=== PATIENT | female | born 1985 | race Caucasian/White ===

== ENCOUNTER 2016-06-27 10:35 | Outpatient (CLI) | payer MEDICAID | END 2016-06-27 10:36 | disposition home or self-care (01) | DX: K52.9 Noninfective gastroenteritis and colitis, unspecified (principal) ==

== ENCOUNTER 2016-08-22 10:22 | Outpatient (CLI) | payer MEDICAID | END 2016-08-22 10:23 | disposition home or self-care (01) | DX: R94.5 Abnormal results of liver function studies (principal) ==

== ENCOUNTER 2017-03-30 09:52 | Emergency (ER) | payer MEDICAID ==
[2017-03-30] MEDS ORDERED: KETOROLAC 60 MG/2 ML VIAL IM STA (10:07)
[2017-03-30] MEDS ORDERED: oxyCODONE 5 MG TABLET PO STA (10:07)
--- NOTE | 2017-03-30 10:10 | ED Physician Documentation ---
History of Present Illness - Stated complaint Stated Complaint: R KNEE INJURY - Additonal information Additional information: hx from pt 32f deneis preg playing basketball came down from a jump and collided with another player her knee gave out/shifted laterally immediate severe pain and swelling Review of Systems : denies: Now EGA Musculoskeletal: reports: Joint pain PD PAST MEDICAL HISTORY - Past Medical History Cardiovascular: None Respiratory: None Endocrine/Autoimmune: Other GI: None : None HEENT: None Psych: Anxiety Musculoskeletal: None Derm: None - Past Surgical History Past Surgical History: Yes 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 - Present Medications Home Medications: Ambulatory Orders Medication Instructions Recorded Confirmed Pnv Cmb#21/Iron/Folic Acid 1 tab PO DAILY 09/25/13 04/15/14 [ Complete Caplet] Ibuprofen [Motrin] 400 mg PO Q6H PRN #30 tablet 03/30/17 Oxycodone HCl/Acetaminophen 1 each PO Q6HR PRN #15 tablet 03/30/17 [Percocet 5-325 mg Tablet] - Allergies Allergies/Adverse Reactions: Allergies Allergy/AdvReac Type Severity Reaction Status Date / Time No Known Drug Allergies Allergy Verified 04/15/14 14:32 - Social History Does the pt smoke?: No Smoking Status: Never smoker Does the pt drink ETOH?: No PD ED PE NORMAL - Vitals Vital signs reviewed: Yes - Cardiac Cardiac: RRR - Respiratory Respiratory: No respiratory distress, Clear bilaterally - Extremities Extremities: Other (R knee marked effusion, TTP bulmaro jt lines, unable to assess ACL MCL LCL laxity or test for meniscal catch given severe pain and edema, patella midline and quad and patellar tendons feel intact, MSV intact to foot) Results - Vitals Vitals: Vital Signs - 24 hr 03/30/17 10:02 Temperature 36.0 C L Heart Rate 68 Respiratory 20 Rate Blood Pressure 111/68 O2 Saturation 100 Oxygen O2 Source Room air - Rads (name of study) knee Radiology: See rad report (effusion, no bony abnormality, no dislocation or sublux) PD MEDICAL DECISION MAKING - ED course ED course: based on mnechanism by hx and immediate large swelling suspect ACL rupture cannot assess laxity 2/2 pain and swelling will JESS cructehs control pain and refer to ortho for fup and further eval such as MRI MSV intact Departure - Departure Disposition: 01 Home, Self Care Clinical Impression: Knee internal derangement Qualifiers: Laterality: right Qualified Code(s): M23.91 - Unspecified internal derangement of right knee Condition: Good Instructions: ED Knee Injury Cruciate Ligament Follow-Up: [facility] [Provider Group] Prescriptions: Oxycodone HCl/Acetaminophen [Percocet 5-325 mg Tablet] 1 each PO Q6HR PRN #15 tablet PRN Reason: Severe Pain Ibuprofen [Motrin] 400 mg PO Q6H PRN #30 tablet PRN Reason: Pain Comments: The xray looks fine - no dislocation and no fractures Based on the injury your describe and the imediate large swellign, i suspect you have torn your ACL At this point the knee is so swollen and painful it is difficult to examine each ligament for laxity I recommend that you use the JESS wrap, ice and elevation to keep the swelling down, motrin and percocet for the pain, no weight bearing - crutches only Then follow up with orthopedics next week for a recheck and perhaps a MRI If you are worse at any point over the weekend - increasing pain, discoloration or numbness come back tot the ER for a recheck Forms: Activity restrictions
[2017-03-30] MEDS ORDERED: oxyCODONE 5 MG TABLET ONE (10:16)
[2017-03-30] MEDS ORDERED: KETOROLAC 60 MG/2 ML VIAL ONE (10:16)
--- NOTE | 2017-03-30 11:22 | XRAY Preliminary Report ---
Exam: XR KNEE 4 VIEW RT IMPRESSION: 1. No acute osseous abnormality. 2. There may be a small knee joint effusion. [facility] SITE ID: [id number]
--- NOTE | 2017-03-30 11:25 | XRAY Report ---
EXAM: RIGHT KNEE RADIOGRAPHY EXAM DATE: 03/30/2017 10:39 AM. CLINICAL HISTORY: Bball, knee shifted/gave out, immediate effusion. COMPARISON: None. TECHNIQUE: 4 views. FINDINGS: Bones: Normal. No fractures or bone lesions. Joints: No subluxation. There may be a small knee joint effusion. Soft Tissues: Normal. No soft tissue swelling. IMPRESSION: 1. No acute osseous abnormality. 2. There may be a small knee joint effusion. [facility] Referring Provider Line: [phone] SITE ID: [id number]
[2017-03-30 11:43] VITALS: BP 106/70
== END 2017-03-30 11:57 | disposition home or self-care (01) ==
LOC: SUPCPDRO 09:52 → ED 09:52
DX: M23.91 Unspecified internal derangement of right knee (principal); X50.0XXA Overexertion from strenuous movement or load, initial encounter; Y93.67 Activity, basketball; Y92.310 Basketball court as the place of occurrence of the external cause
CPT/HCPCS: 73564; 96372; 99283; A9270

== ENCOUNTER 2017-04-08 10:03 | Outpatient (CLI) | payer MEDICAID ==
--- NOTE | 2017-04-08 17:04 | MRI Report ---
EXAM: RIGHT KNEE MRI WITHOUT CONTRAST EXAM DATE: 04/08/2017 11:07 a.m. CLINICAL HISTORY: Basketball injury 10 days ago. Right knee pain, difficulty weight-bearing. COMPARISON: Radiographs 03/30/2017. TECHNIQUE: Multiplanar, multisequence T1-weighted and fluid-sensitive sequences of the knee without c ontrast. Other: None. FINDINGS: Cruciate ligaments: The posterior cruciate ligament appears intact. The anterior cruciate ligament ap pears completely torn. Medial meniscus: Intact. No tear is identified. Lateral meniscus: Steep horizontal tear at the posterior horn extending to the femoral articular surf phyllis. Slightly more vertical orientation medially. Collateral ligaments: Edema associated with the medial collateral ligament. Possible disruption of so me of the upper anterior fibers. The fibular collateral ligament is intact. Bones and articular surfaces: Marrow edema consistent with bone contusions at the posterior aspect of the medial and lateral tibial plateau. Impaction fracture at the periphery of the mid lateral femora l condyle. Tiny Segond avulsion fracture at the lateral margin of the tibial plateau. Mild cartilage fissuring at the medial facet of the patella. Extensor mechanism: The patellar tendon and quadriceps insertion appear intact. IMPRESSION: 1. Tear of the anterior cruciate ligament with corresponding bone contusions. 2. Small impaction fracture at the periphery of the mid lateral femoral condyle. 3. Small Segond avulsion fracture at the lateral margin of the tibial plateau. 4. Horizontal and vertical tear at the posterior horn lateral meniscus. 5. Severe grade 1 versus mild grade 2 sprain of the medial collateral ligament. [facility] MUSCULOSKELETAL RADIOLOGY SECTION Referring Provider Line: [phone] SITE ID: [id number]
== END 2017-04-08 10:04 | disposition home or self-care (01) ==
LOC: DI 10:03
PROVIDERS: ATTEND Orthopaedic Surgery
DX: S83.511A Sprain of anterior cruciate ligament of right knee, initial encounter (principal); S80.11XA Contusion of right lower leg, initial encounter; S72.421A Displaced fracture of lateral condyle of right femur, initial encounter for closed fracture; S82.141A Displaced bicondylar fracture of right tibia, initial encounter for closed fracture; S83.281A Other tear of lateral meniscus, current injury, right knee, initial encounter; S83.411A Sprain of medial collateral ligament of right knee, initial encounter

== ENCOUNTER 2017-04-10 12:00 | Outpatient (CLI) | payer MEDICAID | END 2017-04-10 12:01 | disposition home or self-care (01) | LOC: LAB.R 12:00 | PROVIDERS: ATTEND Obstetrics & Gynecology | DX: L03.90 Cellulitis, unspecified (principal) | CPT/HCPCS: 87070; 87205 ==

== ENCOUNTER 2017-08-29 09:13 | Day surgery (SDC) | payer MEDICAID ==
[~2017-08-29 09:13] MED LIST: ceFAZolin 2 GM/50 ML 2 GM/50 ML BAG IV ONE
[2017-08-29 09:38] LABS: HCG UR QUAL NEGATIVE
[2017-08-29] MEDS ORDERED: LACTATED RINGERS 1,000 ML IV ONE ×3 (09:50→16:16)
[2017-08-29] MEDS ORDERED: SCOPOLAMINE PATCH TOP ONE (10:12)
[2017-08-29] MEDS ORDERED: ROPIVACAINE 0.5% PF 20 ML AMPULE ONE (10:15)
[2017-08-29] MEDS ORDERED: MIDAZOLAM 2 MG/2 ML VIAL ONE (10:15)
[2017-08-29] MEDS ORDERED: fentaNYL 100 MCG/2 ML VIAL ONE ×2 (10:15→13:53)
[2017-08-29] MEDS ORDERED: fentaNYL 250 MCG/5 ML VIAL IVP ONE (11:00)
[2017-08-29] MEDS ORDERED: ACETAMINOPHEN 1,000 MG/100 ML 100 ML IV ONE (11:00)
[2017-08-29] MEDS ORDERED: NEOSTIGMINE 1 MG/1 ML 10 ML MDV IVP ONE (11:00)
[2017-08-29] MEDS ORDERED: PROPOFOL 200 MG/20 ML VIAL IVP ONE (11:00)
[2017-08-29] MEDS ORDERED: ROCURONIUM 50 MG/5 ML VIAL IVP ONE (11:00)
[2017-08-29] MEDS ORDERED: ONDANSETRON 4 MG/2 ML VIAL IVP ONE (11:00)
[2017-08-29] MEDS ORDERED: GLYCOPYRROLATE 1 MG/5 ML VIAL IVP ONE (11:00)
[2017-08-29] MEDS ORDERED: LIDOCAINE-MPF 2% 5 ML VIAL IM ONE (11:00)
[2017-08-29] MEDS ORDERED: BUPIVACAINE 0.25%-EPI 1:200000 PF 30 ML VIAL ONE ×2 (11:24→12:52)
[2017-08-29] MEDS ORDERED: BUPIVACAINE 0.25%-EPI 1:200000 PF 10 ML VIAL SUBQ ONE (11:43)
[2017-08-29] MEDS ORDERED: KETOROLAC 30 MG/ML VIAL ONE (13:12)
[2017-08-29] MEDS ORDERED: HYDROmorphone 0.5 MG/0.5 ML SYRINGE ONE ×2 (13:18→13:26)
[2017-08-29] MEDS ORDERED: ONDANSETRON 4 MG/2 ML VIAL ONE (13:29)
[2017-08-29] MEDS: HYDROmorphone 0.5 MG/0.5 ML SYRINGE ONE ×2 (13:32→13:38)
[2017-08-29] MEDS ORDERED: METOCLOPRAMIDE 10 MG/2 ML VIAL ONE (13:56)
--- NOTE | 2017-08-29 14:13 | OPERATIVE REPORT ---
DATE OF SERVICE: 08/29/2017 Physician: Josse Marc MD PREOPERATIVE DIAGNOSIS: Right knee anterior cruciate ligament tear and medial meniscus tear. POSTOPERATIVE DIAGNOSIS: Right knee anterior cruciate ligament tear and posterior horn medial and lateral meniscus tears. OPERATIVE PROCEDURES 1. Right knee exam under anesthesia. 2. Arthroscopy. 3. Partial posterior horn medial and posterior horn lateral meniscectomies. 4. Allograft anterior cruciate ligament reconstruction. SURGEON: Josse Marc MD ANESTHESIA: General. INDICATIONS FOR SURGERY: This is a 32-year-old female status post a right knee injury with subsequent knee pain and instability with MRI-proven ACL tear and posterior horn medial meniscus tear. Recommendation was for arthroscopic treatment and meniscectomy versus repair and ACL reconstruction. FINDINGS AT SURGERY: The patient's knee exam showed distinct grade 3+ Robert instability and drawer instability with posterior drawer intact. Medial and lateral stability was good. At arthroscopic surgery, the patient was found to have a mild effusion of her knee. She had a tear of her anterior cruciate and intact PCL. She had fairly pristine articular cartilage, patella, femur and tibia. The posterior horn of the medial meniscus had a white area 2 cm long posterior horn longitudinal tear that was very minor and never did enter the red zone. The lateral meniscus had a more complex tear, actually with both horizontal and longitudinal components extending from the posterior root attachment up to the popliteus hiatus. The posterior fragment of this tear was the smaller tear and significantly displaced away from the remaining meniscus and this piece was the piece elected to excise. DESCRIPTION OF OPERATIVE PROCEDURE: The patient was taken to the operating room, given a general anesthetic, she was positioned supine. Tourniquet was placed on the thigh and she was positioned in a leg banerjee. The patient's portal sites were infiltrated with 0.25% Marcaine with epinephrine after the sterile prep and drape had been undertaken. Surgical timeout was held. Arthroscopy was undertaken using medial and lateral anteromedial portals and the findings were as dictated above. The meniscus tears were carefully examined and probed, and the medial meniscus tear, although somewhat simple and potentially repairable, was out of the red zone and very small and did not represent more than 35% of the meniscus width and therefore was excised. The decision on the lateral meniscus was complex because the tear was complex and the root of the meniscus remained attached to the anterior part that was left in place and it was elected to excise the posterior aspect, which preserved the popliteus hiatus and the hoop stresses of the meniscus. The ACL was absent and residual ACL scarred to PCL. After performing meniscectomies, a bur was introduced and a notchplasty performed and all residual ACL fibers were removed. At this point, the scope was withdrawn. The knee was placed up on a Tam in a comfortable position and the allograft and tibialis anterior was prepared with whipstitching of an appropriate graft sizing 9 mm with each end whipstitched with FiberLoop and then placed into the AperFix device with the limbs carefully positioned and tightened down on the banerjee. The Alvarez tibial tunnel guide was selected and inserted into the anteromedial portal and positioned in place, and appropriate counter incision was made at the point of guide pin entry at the tibia. With the knee in extension and the guide in place, the pin was driven into the tibia. This appeared to be a satisfactory placement so the pin was overdrilled 10 mm. The posterior guide was then placed on the posterior notch of the femur in a more lateralized position and appropriate 10 mm size tunnel was made in the femur. This tunnel was carefully made so that there was an intact posterior wall that would accommodate fixation with the AperFix system. Following this, the patient's graft was brought into the field, properly oriented, and marked with a marking pen for depth of insertion and placed transtibial tunnel into the femoral tunnel and the AperFix device deployed, securing the graft in the tunnel. The distal whipstitch limbs of the allograft were then positioned in the tensioner and with the guide pin in place, along with the tissue, the central graft plug was placed, followed by its appropriate AperFix screw, and this was done after cycling the knee and with max tension on the graft at 30 degrees of flexion. With this in place, the knee had been stabilized to drawer testing completely and even medial and lateral stability testing had been tightened. The excess graft was removed and the knee was imaged with arthroscopy as it cycled, and there was no impingement on the PCL or the notch of the femur. Scope and instruments were withdrawn. Closure was with interrupted Vicryl in subcutaneous tissues, followed by Monocryl closure of skin and portal sites. Infiltration was performed with Marcaine with epinephrine, and sterile dressings were applied. The patient was fitted in a knee brace at 30 degrees and taken to the recovery room in stable condition. ESTIMATED BLOOD LOSS FOR THE PROCEDURE: Less than 25 mL COMPLICATIONS: None. COUNTS: Sponge and needle counts correct. TD: 08/29/2017 14:11
[2017-08-29] MEDS ORDERED: oxyCOD/ACETAMIN 5 MG/325 MG TABLET PO ONE ×2 (15:44→17:40)
[2017-08-29] MEDS ORDERED: PROMETHAZINE 25 MG/1 ML VIAL ONE (16:37)
[2017-08-29] MEDS ORDERED: SODIUM CHLORIDE 0.9% 10 ML ONE (16:38)
[2017-08-29 17:51] VITALS: BP 122/72
== END 2017-08-29 09:14 | disposition home or self-care (01) ==
LOC: SDS 09:13
PROVIDERS: ATTEND Orthopaedic Surgery
PROC: 0SBC4ZZ Excision of Right Knee Joint, Percutaneous Endoscopic Approach (ICD-10-PCS; 2017-08-29)
PROC: 0SBC4ZZ Excision of Right Knee Joint, Percutaneous Endoscopic Approach (ICD-10-PCS; 2017-08-29)
PROC: 0MRN4JZ Replacement of Right Knee Bursa and Ligament with Synthetic Substitute, Percutaneous Endoscopic Approach (ICD-10-PCS; principal; 2017-08-29 10:15)
DX: S83.511A Sprain of anterior cruciate ligament of right knee, initial encounter (principal); S83.271A Complex tear of lateral meniscus, current injury, right knee, initial encounter; S83.241A Other tear of medial meniscus, current injury, right knee, initial encounter
CPT/HCPCS: 29880; 29888; 81025; A9270; C1762; C1776; J0131; J0690; J1170; J2765; J3010; J3490; J7120

== ENCOUNTER 2018-06-29 17:49 | Emergency (ER) | payer MEDICAID ==
[2018-06-29] MEDS ORDERED: PSEUDOEPHEDRINE 30 MG TABLET PO STA (18:15)
[2018-06-29] MEDS ORDERED: OXYMETAZOLINE NASAL SPRAY NAS STA (18:15)
--- NOTE | 2018-06-29 18:25 | ED Physician Documentation ---
PD HPI HEADACHE - Stated complaint Stated Complaint: LT EYE MIGRAINE/DIZZY/LT EAR PX - Chief complaint Chief Complaint: Heent - History obtained from History obtained from: Patient - History of Present Illness Timing - onset: How many hours ago (3) Timing - onset during: Rest Timing - duration: Hours (3) Timing - details: Gradual onset Pain level max: 6 Pain level now: 6 Location: Left Quality: Throbbing, Aching Associated symptoms: Eye pain (L eye). No: Fever, Stiff neck, Nausea, Vomiting, Weakness, Numbness, Syncope, Seizure, Vision changes Improved by: Other (hasn't taken anything) Worsened by: Other (bending over) Contributing factors: No: Anticoagulated, Possible carbon monoxide, Hypertension, Recent illness, Trauma Recently seen: Not recently seen Review of Systems Constitutional: denies: Fever, Chills Ears: denies: Ear pain Nose: reports: Rhinorrhea / runny nose, Congestion, Sinus pressure / pain Cardiac: denies: Chest pain / pressure Respiratory: denies: Cough Skin: denies: Rash Musculoskeletal: denies: Neck pain, Back pain Neurologic: denies: Focal weakness, Numbness, Confused, Altered mental status, Head injury, LOC PD PAST MEDICAL HISTORY - Past Medical History Cardiovascular: None Respiratory: Other Endocrine/Autoimmune: None GI: None : None HEENT: None Psych: Depression, Anxiety Musculoskeletal: None Derm: Eczema - Past Surgical History Past Surgical History: Yes 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 - Present Medications Home Medications: Ambulatory Orders Medication Instructions Recorded Confirmed Cetirizine HCl/Pseudoephedrine 1 each PO BID PRN #30 tab.er.12h 06/29/18 [Zyrtec-D Tablet] Mometasone Furoate [Nasonex] 2 spray NS DAILY PRN #1 spray.pump 06/29/18 - Allergies Allergies/Adverse Reactions: Allergies Allergy/AdvReac Type Severity Reaction Status Date / Time No Known Drug Allergies Allergy Verified 06/29/18 18:04 - Social History Does the pt smoke?: No Smoking Status: Never smoker Does the pt drink ETOH?: No Does the pt have substance abuse?: No - Immunizations Immunizations are current?: Yes - POLST Patient has POLST: No PD ED PE NORMAL - Vitals Vital signs reviewed: Yes - General General: Alert and oriented X 3, No acute distress - HEENT HEENT: PERRL, Moist mucous membranes, Pharynx benign, Other (nasal exam - Significant swelling of the nasal turbinates with clear drainage.) - Neck Neck: Supple, no meningeal sign - Cardiac Cardiac: RRR - Respiratory Respiratory: No respiratory distress, Clear bilaterally - Abdomen Abdomen: Soft, Non tender, Non distended - Derm Derm: Warm and dry - Neuro Neuro: Alert and oriented X 3, battery checker 2-12 intact, No motor deficit, No sensory deficit, Normal speech Eye Opening: Spontaneous Motor: Obeys Commands Verbal: Oriented GCS Score: 15 Results - Vitals Vitals: Vital Signs - 24 hr 06/29/18 06/29/18 17:51 18:37 Temperature 36.8 C 36.8 C Heart Rate 83 67 Respiratory 18 16 Rate Blood Pressure 132/81 H 135/73 H O2 Saturation 100 100 Oxygen O2 Source Room air PD MEDICAL DECISION MAKING - ED course Complexity details: re-evaluated patient, considered differential, d/w patient, d/w family ED course: 33-year-old female with left sided headache. Appears consistent with sinusitis. Afrin is on back order and was unable to be used today. Was given pseudoephedrine. Will place on Nasonex for home. She is well-appearing, nontoxic. Normal cerebellar test. Normal gait. Normal examination. No papilledema. No evidence of subarachnoid hemorrhage, tumor, intracranial hemorrhage. Patient counseled regarding signs and symptoms for which I believe and urgent re-evaluation would be necessary. Patient with good understanding of and agreement to plan and is comfortable going home at this time This document was made in part using voice recognition software. While efforts are made to proofread this document, sound alike and grammatical errors may occur. Departure - Departure Disposition: Home, Self Care Clinical Impression: Sinus headache Condition: Good Instructions: ED Headache Sinus Follow-Up: Dhara Torres PA-C [Primary Care Provider] - Within 1 week Prescriptions: Cetirizine HCl/Pseudoephedrine [Zyrtec-D Tablet] 1 each PO BID PRN #30 tab.er.12h PRN Reason: nasal congestion Mometasone Furoate [Nasonex] 2 spray NS DAILY PRN #1 spray.pump PRN Reason: Nasal Congestion Comments: Use the medications as prescribed. Return if you worsen. This should improve as your sinuses open up. Discharge Date/Time: 06/29/18 18:39
[2018-06-29 18:38] VITALS: BP 135/73
== END 2018-06-29 18:39 | disposition home or self-care (01) ==
LOC: ED 17:49
DX: R51 Headache (principal); J34.89 Other specified disorders of nose and nasal sinuses
CPT/HCPCS: 99283; A9270

== ENCOUNTER 2018-07-02 12:23 | Outpatient (CLI) | payer MEDICAID ==
--- NOTE | 2018-07-03 09:44 | XRAY Report ---
Reason: STRAIN OF MUSCLE, FASCIA TENDON AT NECK LEVEL Procedure Date: 07/02/2018 Accession Number: [id number] / [id number] Procedure: XR - Cervical Spine 2 View CPT Code: FULL RESULT: EXAM: CERVICAL SPINE RADIOGRAPHY EXAM DATE: 07/02/2018 01:07 PM. CLINICAL HISTORY: Strain of muscle, fascia tendon at neck level. COMPARISONS: None. TECHNIQUE: 3 views. FINDINGS: Alignment: Normal. No spondylolisthesis or scoliosis. Bones: The cervical vertebral bodies and posterior elements are well visualized from the skull base through C7-T1. No fractures or bone lesions. Disks: Normal. Disk heights are maintained. Facets: No degenerative disease. Soft Tissues: Normal. No prevertebral soft tissue swelling. The visualized lung apices are clear. IMPRESSION: Normal cervical spine radiography. [facility]
== END 2018-07-02 12:24 | disposition home or self-care (01) ==
LOC: DI 12:23
PROVIDERS: ATTEND Physician Assistant Medical
DX: S16.1XXD Strain of muscle, fascia and tendon at neck level, subsequent encounter (principal)
CPT/HCPCS: 72040

== ENCOUNTER 2018-11-02 18:04 | Emergency (ER) | payer MEDICAID ==
[2018-11-02] MEDS ORDERED: SODIUM CHLORIDE 0.9% 1,000 ML IV ONE (19:02)
--- NOTE | 2018-11-02 19:04 | ED Physician Documentation ---
PD HPI ABD PAIN - Stated complaint Stated Complaint: ABD PX - Chief complaint Chief Complaint: Abd Pain - History obtained from History obtained from: Patient - History of Present Illness Timing - onset: Other (5 days of abdominal pressure especially in the lower abdomen. She felt like she might be constipated due to increased protein intake and has taken some stool softeners, MiraLAX, and enemas with watery bowel movements. She is mildly nauseous and has decreased appetite. No fevers. No history of abdominal surgeries except for 2 C-sections. Last menses was 20 days ago. 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 - Present 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 Home Medications: Ambulatory Orders Medication Instructions Recorded Confirmed Cetirizine HCl/Pseudoephedrine 1 each PO BID PRN #30 tab.er.12h 06/29/18 [Zyrtec-D Tablet] Mometasone Furoate [Nasonex] 2 spray NS DAILY PRN #1 spray.pump 06/29/18 - Allergies Allergies/Adverse Reactions: Allergies Allergy/AdvReac Type Severity Reaction Status Date / Time No Known Drug Allergies Allergy Verified 06/29/18 18:04 - Social History Does the pt smoke?: No Smoking Status: Never smoker Does the pt drink ETOH?: No Does the pt have substance abuse?: No - Family History Family history: reports: Non contributory - Immunizations Immunizations are current?: Yes - POLST Patient has POLST: No PD ED PE NORMAL - Vitals Vital signs reviewed: Yes - General General: Alert and oriented X 3, No acute distress - Neck Neck: Supple, no meningeal sign, No bony TTP - Cardiac Cardiac: RRR, No murmur - Respiratory Respiratory: No respiratory distress, Clear bilaterally - Abdomen Abdomen: Other (Hyperactive bowel tones with mild lower abdominal tenderness, no surgical signs.) - Back Back: No CVA TTP, No spinal TTP - Derm Derm: Normal color, Warm and dry - Extremities Extremities: No edema, No calf tenderness / cord - Neuro Neuro: Alert and oriented X 3, Normal speech Results - Vitals Vitals: Vital Signs - 24 hr 11/02/18 11/02/18 18:11 20:38 Temperature 36.7 C 36.8 C Heart Rate 82 74 Respiratory 16 16 Rate Blood Pressure 126/82 H 116/73 O2 Saturation 100 100 Oxygen O2 Source Room air - Labs Labs: Laboratory Tests 11/02/18 11/02/18 11/02/18 19:08 19:08 19:10 WBC 12.9 H RBC 4.44 Hgb 13.6 Hct 40.5 MCV 91.2 MCH 30.6 MCHC 33.6 RDW 12.8 Plt Count 365 MPV 10.4 Neut # (Auto) 9.3 H Lymph # (Auto) 2.8 [place] # (Auto) 0.7 Eos # (Auto) 0.1 Baso # (Auto) 0.0 Absolute Nucleated RBC 0.00 Nucleated RBC % 0.0 Sodium 139 Potassium 4.0 Chloride 104 Carbon Dioxide 23 Anion Gap 12.0 BUN 7 Creatinine 0.8 Estimated GFR (MDRD) 84 L Glucose 93 Calcium 9.5 Total Bilirubin 0.8 AST 13 ALT 12 Alkaline Phosphatase 68 Total Protein 8.9 H Albumin 4.8 Globulin 4.1 Albumin/Globulin Ratio 1.2 Lipase 31 Urine Color YELLOW Urine Clarity CLEAR Urine pH 5.0 Ur Specific [place] <=1.005 Urine Protein NEGATIVE Urine Glucose (UA) NEGATIVE Urine Ketones NEGATIVE Urine Occult Blood NEGATIVE Urine Nitrite NEGATIVE Urine Bilirubin NEGATIVE Urine Urobilinogen 0.2 (NORMAL) Ur Leukocyte Esterase NEGATIVE Ur Microscopic Review NOT INDICATED Urine Culture Comments NOT INDICATED Urine HCG, Qual NEGATIVE - Rads (name of study) CT A/P Radiology: EMP read contemporaneously (Mild splenomegaly, left hemorrhagic ovarian cyst) PD MEDICAL DECISION MAKING - ED course ED course: 33-year-old woman presents with complaints and concerns for constipation, however her history is atypical as other than a mild increase in protein intake there is really no risk factors for such severe constipation is to be present for 5 days despite laxatives. As such imaging was undertaken with hemorrhagic cyst is the likely diagnosis. There is no clinical evidence of torsion. The patient and family were counseled as to the diagnosis and need for follow- up. I counseled the patient with regard to signs and symptoms that would necessitate an urgent reevaluation in the emergency department. They understand they are welcome to return at any time if worse or if not improving as expected. This document was made in part using voice recognition software. While efforts are made to proofread this documents, sound alike and grammatical errors may occur. Departure - Departure Disposition: 01 Home, Self Care Clinical Impression: Abdominal pain Qualifiers: Abdominal location: lower abdomen, unspecified Qualified Code(s): R10.30 - Lower abdominal pain, unspecified Cyst of ovary Qualifiers: Laterality: left Qualified Code(s): N83.202 - Unspecified ovarian cyst, left side Condition: Good Record reviewed to determine appropriate education?: Yes Health Concerns: abd pain, ?constipation Plan of Treatment: CT imaging done, showing hemorrhagic left ovarian cyst. 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 Return if worse or if pain is severe. Ibuprofen as needed for the pain. Care Goals: pain control Assessment: as above Instructions: ED Cyst Ovarian Follow-Up: Joan Torres CNM, BUSINESS ANALYTICS MANAGER [Provider Admit Priv/Credential] - Within 1 week
[2018-11-02 19:12] LABS: BASOPHILS % (AUTO) 0.3 %; EOSINOPHILS # (AUTO) 0.1 10^3/uL (0.0-0.7); EOSINOPHILS % (AUTO) 0.9 %; HGB - HEMOGLOBIN 13.6 g/dL (12.0-16.0); LYMPHOCYTES # (AUTO) 2.8 10^3/uL (1.5-3.5); LYMPHOCYTES % (AUTO) 21.3 %; MEAN CORPUSCULAR HEMOGLOBIN 30.6 pg (27.0-31.0); MEAN CORPUSCULAR HGB CONC 33.6 g/dL (32.0-36.0); MEAN CORPUSCULAR VOLUME 91.2 fL (81.0-99.0); MEAN PLATELET VOLUME 10.4 fL (7.9-10.8); MONOCYTES # (AUTO) 0.7 10^3/uL (0.0-1.0); MONOCYTES % (AUTO) 5.3 %; NEUTROPHILS # (AUTO) 9.3 10^3/uL (1.5-6.6); NEUTROPHILS % (AUTO) 71.7 %; PLT - PLATELET COUNT 365 10^3/uL (130-450); RED BLOOD COUNT 4.44 10^6/uL (4.20-5.40); RED CELL DISTRIBUTION WIDTH 12.8 % (12.0-15.0); WHITE BLOOD COUNT 12.9 x10^3/uL (4.8-10.8)
[2018-11-02] MEDS ORDERED: IOVERSOL 320 100 ML VIAL IVP ONE ×2 (19:12→19:41)
[2018-11-02 19:16] LABS: BILIRUBIN,URINE NEGATIVE (NEGATIVE); GLUCOSE, URINE (UA) NEGATIVE (NEGATIVE); KETONES,URINE (UA) NEGATIVE (NEGATIVE); LEUKOCYTE ESTERASE, URINE NEGATIVE (NEGATIVE); NITRITE,URINE NEGATIVE (NEGATIVE); OCCULT BLOOD,URINE NEGATIVE (NEGATIVE); PROTEIN,URINE NEGATIVE (NEGATIVE); UROBILINOGEN,URINE 0.2 (NORMAL) E.U./dL (NORMAL)
[2018-11-02 19:19] LABS: CLARITY,URINE CLEAR (CLEAR); HCG UR QUAL NEGATIVE
[2018-11-02 19:25] LABS: ALBUMIN 4.8 g/dL (3.2-5.5); ALBUMIN/GLOBULIN RATIO 1.2 (1.0-2.2); BILIRUBIN,TOTAL 0.8 mg/dL (0.2-1.0); CALCIUM 9.5 mg/dL (8.5-10.3); CREATININE 0.8 mg/dL (0.4-1.0); TOTAL PROTEIN 8.9 g/dL (6.7-8.2)
[2018-11-02] MEDS ORDERED: IBUPROFEN 800 MG TABLET PO STA (19:46)
[2018-11-02 20:39] VITALS: BP 116/73
--- NOTE | 2018-11-02 20:42 | CT Report ---
Reason: IV only, Left/lower abd pain Procedure Date: 11/02/2018 Accession Number: [id number] / [id number] Procedure: CT - Abdomen/Pelvis W CPT Code: FULL RESULT: EXAM: CT ABDOMEN AND PELVIS EXAM DATE: 11/02/2018 07:39 PM. CLINICAL HISTORY: IV only, Left lower abdominal pain. COMPARISONS: None. TECHNIQUE: Routine helical CT imaging was performed through the abdomen and pelvis. IV contrast: 100 mL Optiray 320. Enteric contrast: No. Reconstructions: Coronal and sagittal. In accordance with CT protocol optimization, one or more of the following dose reduction techniques were utilized for this exam: automated exposure control, adjustment of mA and/or KV based on patient size, or use of iterative reconstructive technique. FINDINGS: Lung Bases: Unremarkable. Liver: Upper limit of normal in size. Gallbladder/Bile Ducts: Unremarkable. Spleen: Mildly enlarged at 14.2 cm in length. Pancreas: Normal. Adrenal Glands: Normal. Kidneys: No hydronephrosis. Tiny hypoattenuating left renal cortical lesion is not well characterized but statistically likely a cyst. Peritoneal Cavity/Bowel: Probable small hiatal hernia. No free fluid, free air or adenopathy. No masses or acute inflammatory process. The appendix is well visualized and normal. Pelvic Organs: Bladder is unremarkable. There is a cystic left adnexal lesion with dependent debris/hemorrhage that measures 4.6 x 4.4 cm (image 65 series 3). No septations seen. No significant adjacent fluid or inflammation. Vasculature: Unremarkable. Bones: No significant abnormality. Other: None. IMPRESSION: 1. Complex cystic left adnexal lesion is favored to represent a hemorrhagic cyst. Ultrasound could further assess versus follow-up ultrasound in 8-12 weeks. 2. Mild splenomegaly. RADIA
== END 2018-11-02 21:12 | disposition home or self-care (01) ==
LOC: ED 18:04
DX: N83.202 Unspecified ovarian cyst, left side (principal); R16.1 Splenomegaly, not elsewhere classified
CPT/HCPCS: 74177; 80053; 81003; 81025; 83690; 85025; 99283; A9270; Q9967; 81001; 87086

== ENCOUNTER 2019-01-28 14:07 | Outpatient (CLI) | payer MEDICAID ==
--- NOTE | 2019-01-29 08:00 | Ultrasound Report ---
Reason: ENLARGED THYROID Procedure Date: 01/28/2019 Accession Number: [id number] / [id number] Procedure: US - Head or Neck Soft Tissue CPT Code: FULL RESULT: EXAM: THYROID ULTRASOUND EXAM DATE: 01/28/2019 02:51 PM. CLINICAL HISTORY: Enlarged thyroid. COMPARISON: None. TECHNIQUE: Real time sonographic imaging of the thyroid was performed by the resistor testing machine operator. Multiple pest control service representative static images were saved for review. FINDINGS: THYROID GLAND: Right Lobe: 5.6 x 1.7 x 1.5 cm, volume 7.5 cc. Normal background echotexture. Right Lobe Nodules: None. Left Lobe: 4.7 x 1.3 x 1.6 cm, volume 5.1 cc. Normal background echotexture. Left Lobe Nodules: 0.7 x 0.4 x 0.5 cm nonvascular cystic nodule in the midpole. Isthmus: 0.3 cm AP. Isthmic Nodules: None. LYMPH NODES: No adenopathy demonstrated in the central or lateral compartment. OTHER: None. IMPRESSION: Cystic subcentimeter nodule in the mid pole left thyroid lobe. No additional nodules identified. Management recommendations are based on 2015 [place] [employer] Management Guidelines for Adult Patients with Thyroid Nodules and Differentiated Thyroid Cancer. RADIA
== END 2019-01-28 14:08 | disposition home or self-care (01) ==
LOC: DI 14:07
PROVIDERS: ATTEND Physician Assistant Medical
DX: E04.1 Nontoxic single thyroid nodule (principal)
CPT/HCPCS: 76536

== ENCOUNTER 2019-01-28 14:08 | Outpatient (CLI) | payer MEDICAID ==
--- NOTE | 2019-01-29 09:03 | Ultrasound Report ---
Reason: UNSPECIFIED OVARIAN CYST, RIGHT SIDE Procedure Date: 01/28/2019 Accession Number: [id number] / [id number] Procedure: US - Pelvic w/Transvaginal CPT Code: FULL RESULT: EXAM: PELVIC ULTRASOUND EXAM DATE: 01/28/2019 02:23 PM. CLINICAL HISTORY: Unspecified ovarian cyst, right side. COMPARISON: None. TECHNIQUE: Realtime transabdominal pelvic scan performed to identify the uterus and adnexa and as an overview of other pelvic structures, followed by transvaginal scan to provide greater detail of the uterus and adnexa, with static image documentation. FINDINGS: Uterus: 7.8 x 4.3 x 5.1 cm, volume 89.5 cc. Anteverted position. Normal overall size and echotexture. Masses: None. Endometrium: 13 mm. Normal. Cervix: Unremarkable. Right Ovary: 1.5 x 0.9 x 2.5 cm, volume 1.8 cc. Normal echotexture and blood flow. Left Ovary: 4.3 x 2.9 x 2.2 cm, volume 14.3 cc. Normal echotexture and blood flow. There is a complex cyst measuring 2.1 x 1.8 x 1.9 cm without internal vascularity, appearance most suggestive of hemorrhagic cyst. Free Fluid: None. Other: None. IMPRESSION: Comparing appearance of the now smaller complex left adnexal cyst to previously seen larger cyst with high density and low density components, the overall appearance favors an involuting hemorrhagic cyst. RADIA
== END 2019-01-28 14:09 | disposition home or self-care (01) ==
LOC: DI 14:08
PROVIDERS: ATTEND Obstetrics & Gynecology
DX: N83.202 Unspecified ovarian cyst, left side (principal); E04.1 Nontoxic single thyroid nodule; R68.89 Other general symptoms and signs
CPT/HCPCS: 36415; 76536; 76830; 76856; 84443; 85025

== ENCOUNTER 2019-01-28 15:15 | Outpatient (CLI) | payer MEDICAID ==
[2019-01-28 15:42] LABS: BASOPHILS # (AUTO) 0.1 10^3/uL (0.0-0.1); BASOPHILS % (AUTO) 0.4 %; EOSINOPHILS # (AUTO) 0.2 10^3/uL (0.0-0.7); EOSINOPHILS % (AUTO) 1.2 %; HGB - HEMOGLOBIN 12.8 g/dL (12.0-16.0); LYMPHOCYTES # (AUTO) 2.3 10^3/uL (1.5-3.5); MEAN CORPUSCULAR HEMOGLOBIN 30.8 pg (27.0-31.0); MEAN CORPUSCULAR HGB CONC 33.4 g/dL (32.0-36.0); MEAN CORPUSCULAR VOLUME 92.1 fL (81.0-99.0); MEAN PLATELET VOLUME 10.5 fL (7.9-10.8); MONOCYTES # (AUTO) 0.6 10^3/uL (0.0-1.0); MONOCYTES % (AUTO) 4.4 %; NEUTROPHILS # (AUTO) 9.6 10^3/uL (1.5-6.6); NEUTROPHILS % (AUTO) 75.6 %; PLT - PLATELET COUNT 365 10^3/uL (130-450); RED BLOOD COUNT 4.16 10^6/uL (4.20-5.40); RED CELL DISTRIBUTION WIDTH 13.1 % (12.0-15.0); WHITE BLOOD COUNT 12.8 x10^3/uL (4.8-10.8)
== END 2019-01-28 15:16 | disposition home or self-care (01) ==
LOC: LAB 15:15
PROVIDERS: ATTEND Physician Assistant Medical
DX: E04.9 Nontoxic goiter, unspecified (principal); R68.89 Other general symptoms and signs
CPT/HCPCS: 36415; 84443; 85025

== ENCOUNTER 2019-09-24 08:00 | Outpatient (CLI) | payer MEDICAID ==
[2019-09-25 20:33] LABS: CANDIDA GROUP DNA POSITIVE (NEGATIVE); CANDIDA KRUSEI DNA NEGATIVE (NEGATIVE); TRICHOMONAS VAGINALIS DNA NEGATIVE (NEGATIVE)
== END 2019-09-24 23:59 | disposition home or self-care (01) ==
LOC: LAB.R 08:00
PROVIDERS: ATTEND Obstetrics & Gynecology
DX: N76.0 Acute vaginitis (principal)
CPT/HCPCS: 87661; 87801

== ENCOUNTER 2020-02-24 11:22 | Outpatient (CLI) | payer MEDICAID ==
[2020-02-24 15:37] LABS: BASOPHILS % (AUTO) 0.4 %; EOSINOPHILS # (AUTO) 0.2 10^3/uL (0.0-0.7); EOSINOPHILS % (AUTO) 2.1 %; HGB - HEMOGLOBIN 12.1 g/dL (12.0-16.0); LYMPHOCYTES # (AUTO) 2.2 10^3/uL (1.5-3.5); LYMPHOCYTES % (AUTO) 29.5 %; MEAN CORPUSCULAR HEMOGLOBIN 30.1 pg (27.0-31.0); MEAN CORPUSCULAR HGB CONC 32.1 g/dL (32.0-36.0); MEAN CORPUSCULAR VOLUME 93.8 fL (81.0-99.0); MEAN PLATELET VOLUME 11.6 fL (7.9-10.8); MONOCYTES # (AUTO) 0.3 10^3/uL (0.0-1.0); MONOCYTES % (AUTO) 4.5 %; NEUTROPHILS # (AUTO) 4.8 10^3/uL (1.5-6.6); NEUTROPHILS % (AUTO) 63.1 %; PLT - PLATELET COUNT 330 10^3/uL (130-450); RED BLOOD COUNT 4.02 10^6/uL (4.20-5.40); RED CELL DISTRIBUTION WIDTH 12.7 % (12.0-15.0); WHITE BLOOD COUNT 7.5 x10^3/uL (4.8-10.8)
[2020-02-24 15:56] LABS: ALBUMIN 4.3 g/dL (3.2-5.5); ALBUMIN/GLOBULIN RATIO 1.4 (1.0-2.2); ALKALINE PHOSPHATASE 43 IU/L (42-121); ALT ALANINE AMINOTRANSFERASE 12 IU/L (10-60); AST ASPARTATE AMINOTRANSFERASE 12 IU/L (10-42); BILIRUBIN,TOTAL 0.5 mg/dL (0.2-1.0); BUN - BLOOD UREA NITROGEN 10 mg/dL (6-20); CALCIUM 9.3 mg/dL (8.5-10.3); CARBON DIOXIDE - CO2 24 mmol/L (21-32); CHLORIDE 107 mmol/L (101-111); CHOLESTEROL 201 mg/dL; CREATININE 0.7 mg/dL (0.4-1.0); GLUCOSE 110 mg/dL (70-100); HDL CHOLESTEROL 40 mg/dL; LDL CHOLESTEROL,CALCULATED 141 mg/dL; LDL/HDL RATIO 3.5 (<4.4); SODIUM 139 mmol/L (135-145); TOTAL PROTEIN 7.4 g/dL (6.7-8.2); VLDL CHOLESTEROL 20 mg/dL
[2020-02-26 13:31] LABS: COMPLEMENT COMPONENT C3C 147 mg/dL (83-193)
[2020-02-26 15:01] LABS: DNA (DS) ANTIBODY 1 IU/mL
== END 2020-02-24 11:23 | disposition home or self-care (01) ==
LOC: LAB.S 11:22
PROVIDERS: ATTEND Registered Nurse
DX: F32.9 Major depressive disorder, single episode, unspecified (principal); Z83.2 Family history of diseases of the blood and blood-forming organs and certain disorders involving the immune mechanism; R42 Dizziness and giddiness; E78.00 Pure hypercholesterolemia, unspecified; L40.9 Psoriasis, unspecified; E04.1 Nontoxic single thyroid nodule; E66.9 Obesity, unspecified; F41.9 Anxiety disorder, unspecified
CPT/HCPCS: 36415; 80053; 80061; 81599; 83721; 84443; 85025; 86038; 86225; 86592

== ENCOUNTER 2022-01-24 10:22 | Outpatient (CLI) | payer BC ==
[2022-01-24 14:28] LABS: BASOPHILS % (AUTO) 0.5 %; EOSINOPHILS # (AUTO) 0.1 10^3/uL (0.0-0.7); EOSINOPHILS % (AUTO) 1.8 %; HCT - HEMATOCRIT 38.2 % (37.0-47.0); HGB - HEMOGLOBIN 12.7 g/dL (12.0-16.0); LYMPHOCYTES # (AUTO) 1.9 10^3/uL (1.5-3.5); MEAN CORPUSCULAR HEMOGLOBIN 30.7 pg (27.0-31.0); MEAN CORPUSCULAR HGB CONC 33.2 g/dL (32.0-36.0); MEAN CORPUSCULAR VOLUME 92.3 fL (81.0-99.0); MEAN PLATELET VOLUME 11.1 fL (7.9-10.8); MONOCYTES # (AUTO) 0.4 10^3/uL (0.0-1.0); MONOCYTES % (AUTO) 5.3 %; NEUTROPHILS # (AUTO) 5.2 10^3/uL (1.5-6.6); NEUTROPHILS % (AUTO) 67.3 %; PLT - PLATELET COUNT 312 10^3/uL (130-450); RED BLOOD COUNT 4.14 10^6/uL (4.20-5.40); RED CELL DISTRIBUTION WIDTH 12.7 % (12.0-15.0); WHITE BLOOD COUNT 7.7 x10^3/uL (4.8-10.8)
[2022-01-24 15:28] LABS: ALBUMIN 4.4 g/dL (3.2-5.5); ALBUMIN/GLOBULIN RATIO 1.4 (1.0-2.2); ALKALINE PHOSPHATASE 52 IU/L (42-121); ALT ALANINE AMINOTRANSFERASE 11 IU/L (10-60); AST ASPARTATE AMINOTRANSFERASE 11 IU/L (10-42); BILIRUBIN,TOTAL 0.4 mg/dL (0.2-1.0); BUN - BLOOD UREA NITROGEN 13 mg/dL (6-20); CALCIUM 9.4 mg/dL (8.5-10.3); CARBON DIOXIDE - CO2 24 mmol/L (21-32); CHLORIDE 106 mmol/L (101-111); CHOLESTEROL 210 mg/dL; CREATININE 0.7 mg/dL (0.4-1.0); GFR - MDRD 95 (>89); GLUCOSE 82 mg/dL (70-100); HDL CHOLESTEROL 52 mg/dL; LDL CHOLESTEROL,CALCULATED 145 mg/dL; LDL/HDL RATIO 2.8 (<4.4); SODIUM 137 mmol/L (135-145); TOTAL PROTEIN 7.6 g/dL (6.7-8.2); TRIGLYCERIDES 66 mg/dL; VLDL CHOLESTEROL 13 mg/dL
[2022-01-24 15:39] LABS: THYROID STIMULATING HORMONE 1.86 uIU/mL (0.34-5.60)
== END 2022-01-24 10:23 | disposition home or self-care (01) ==
LOC: LAB.S 10:22
PROVIDERS: ATTEND Registered Nurse
DX: E78.00 Pure hypercholesterolemia, unspecified (principal); Z13.0 Encounter for screening for diseases of the blood and blood-forming organs and certain disorders involving the immune mechanism; Z13.29 Encounter for screening for other suspected endocrine disorder
CPT/HCPCS: 36415; 80053; 80061; 83721; 84443; 85025

== ENCOUNTER 2022-01-31 09:33 | Outpatient (CLI) | payer BC ==
--- NOTE | 2022-01-31 12:55 | XRAY Report ---
PROCEDURE: Neck Soft Tissue INDICATIONS: MUSCLE SPASMS, difficulty swallowing TECHNIQUE: 2 views of the neck were acquired. COMPARISON: None FINDINGS: Airway: The airway appears patent. Soft tissues: Prevertebral soft tissues are normal in thickness. The epiglottis and aryepiglottic f olds appear normal. No soft tissue gas. Bones: No suspicious bony lesions. Visualized cervical spine is normally aligned. IMPRESSION: Unremarkable two-view neck radiographs, without significant swelling or other abnormality. Consider f luoroscopic swallowing evaluation if there is clinical concern for dysphagia. Reviewed by: Wally Smith MD on 01/31/2022 12:53 PM PDT Approved by: Wally Smith MD on 01/31/2022 12:53 PM PDT Station ID: [id number]
== END 2022-01-31 09:34 | disposition home or self-care (01) ==
LOC: DI.S 09:33
PROVIDERS: ATTEND Registered Nurse
DX: M62.838 Other muscle spasm (principal)

== ENCOUNTER 2022-06-13 11:30 | Outpatient (CLI) | payer BC ==
[2022-06-13 20:05] LABS: BACTERIAL VAGINOSIS DNA NEGATIVE (NEGATIVE); CANDIDA KRUSEI DNA NEGATIVE (NEGATIVE)
[2022-06-13 20:06] LABS: CANDIDA GLABRATA DNA NEGATIVE (NEGATIVE); CANDIDA GROUP DNA NEGATIVE (NEGATIVE); TRICHOMONAS VAGINALIS DNA NEGATIVE (NEGATIVE)
[2022-06-13 20:56] LABS: CHLAMYDIA TRACHOMATIS DNA NEGATIVE (NEGATIVE); NEISSERIA GONORRHOEAE DNA NEGATIVE (NEGATIVE)
== END 2022-06-13 23:59 | disposition home or self-care (01) ==
LOC: LAB.WC 11:30
PROVIDERS: ATTEND Obstetrics & Gynecology
DX: N89.8 Other specified noninflammatory disorders of vagina (principal); Z11.3 Encounter for screening for infections with a predominantly sexual mode of transmission
CPT/HCPCS: 81514; 87491; 87591; 87661

== ENCOUNTER 2022-08-01 08:49 | Outpatient (CLI) | payer BC ==
--- NOTE | 2022-08-01 13:45 | Ultrasound Report ---
PROCEDURE: Pelvic w/Transvaginal INDICATIONS: OVARIAN CYST TECHNIQUE: Real-time scanning was performed of the pelvic organs, with image documentation. Additional endovagi nal scanning was necessary due to incomplete visualization of the adnexal and endometrial structures by transabdominal scanning. COMPARISON: Ultrasound 01/28/2019 FINDINGS: Uterus: Uterus is anteverted and normal in size at 8.6 x 4.3 x 5.6 cm. The myometrium is heterogene ous. The endometrium measures 11 mm in combined thickness. Ovaries: The right ovary measures 2.9 x 2.1 x 2.0 cm, with a calculated ovarian volume of 6 cc. The left ovary measures 2.8 x 1.5 x 2.0 cm, with a calculated ovarian volume of 4.4 cc. The ovaries hav e a normal sonographic appearance. Less than 12 follicles can be seen in each ovary. No adnexal mas ses are seen. Other: No pathologic free abdominal or pelvic fluid. IMPRESSION: Resolved left hemorrhagic cyst. Reviewed by: Bernard Celaya on 08/01/2022 9:46 AM PDT Approved by: Bernard Celaya on 08/01/2022 9:46 AM PDT Station ID: [id number]
== END 2022-08-01 08:50 | disposition home or self-care (01) ==
LOC: DI 08:49
PROVIDERS: ATTEND Obstetrics & Gynecology
DX: Z09 Encounter for follow-up examination after completed treatment for conditions other than malignant neoplasm (principal); Z87.42 Personal history of other diseases of the female genital tract

== ENCOUNTER 2022-08-01 08:49 | Outpatient (CLI) | payer BC ==
--- NOTE | 2022-08-02 09:48 | Mammography Report ---
BILATERAL DIGITAL DIAGNOSTIC MAMMOGRAM 3D/2D WITH CLEAVAGE: 08/01/2022 CLINICAL: Baseline exam. Palpable left breast lump. No prior exams were available for comparison. Both breasts are heterogeneously dense, which may obscure small masses (category c / 51-75% glandular tissue). There is an oval focal asymmetry in the right breast central to the nipple posterior depth. There is an oval focal asymmetry in the left breast at 7 o'clock anterior depth. Other small oval circumscribed masses are seen in both breasts. No other significant masses or calcif ications are seen in either breast. IMPRESSION: INCOMPLETE: NEEDS ADDITIONAL IMAGING EVALUATION The oval focal asymmetry in the right breast central to the nipple posterior depth is indeterminate. An ultrasound is recommended. This is incidental. The oval focal asymmetry in the left breast at 7 o'clock anterior depth is indeterminate. An ultraso und is recommended. This is incidental. There is no abnormality seen in the left breast to correspond with the area of clinical concern at 9 o'clock, however, ultrasound is recommended. Based on the Tyrer Cuzick model (a risk assessment model) the patients lifetime risk is 10.9% and he r 10 year risk is 0.8%. According to the ACR, ACS, and NCCN guidelines, an annual breast MRI exam dottie ng with mammogram is recommended if the patients lifetime risk is 20% or greater. This exam was interpreted at Station ID: [id number]. NOTE: For mammograms, a report in lay terms will be sent to the patient. Approximately 15% of breast malignancies will not be visualized mammographically. In the management of a palpable breast mass, a negative mammogram must not discourage biopsy of a clinically suspicious lesion. Electronically Signed By: Wally Smith M.D. lc/:08/01/2022 11:31:26 ACR BI-RADS Category 0: Incomplete 3340F PARENCHYMAL PATTERN: (D) - The breast(s) demonstrate(s) heterogeneously dense fibroglandular parluisa alex. BI-RADS CATEGORY: (0) - 0 Ultrasound [id number] Immediate follow-up LATERALITY: (B)
--- NOTE | 2022-08-02 09:49 | Ultrasound Report ---
LIMITED ULTRASOUND OF RIGHT BREAST: 08/01/2022 CLINICAL: Patient returns today to evaluate a focal asymmetry in the right breast. Comparison is made to exam dated: 08/01/2022 mammogram - [facility]. Ultrasound of the right breast 3 o'clock, 6 o'clock, 9 o'clock, 12 o'clock, and retroareolar regions was performed. Carroll scale images of the real-time examination were reviewed. IMPRESSION: PROBABLY BENIGN There is no abnormality seen in the right breast to correspond with the mammography finding central t o the nipple (oval circumscribed focal asymmetry). This is incidental. A follow-up mammogram in 6 months is recommended to demonstrate stability. This exam was interpreted at Station ID: [id number]. Electronically Signed By: Wally Smith M.D. lc/:08/01/2022 11:34:02 Ultrasound BI-RADS: 3 Probably benign BI-RADS CATEGORY: (3) - 3 Mammogram [id number] 6 month follow-up LATERALITY: (B)
--- NOTE | 2022-08-02 09:49 | Ultrasound Report ---
LIMITED ULTRASOUND OF LEFT BREAST: 08/01/2022 CLINICAL: Palpable left breast lump. Comparison is made to exam dated: 08/01/2022 mammogram - [facility]. Ultrasound of the left breast lower inner quadrant was performed. Carroll scale images of the real-jameson e examination were reviewed. IMPRESSION: PROBABLY BENIGN There is no abnormality seen in the left breast to correspond with the area of clinical concern at 9 o'clock, however, clinical correlation and clinical followup are recommended. There is no abnormality seen in the left breast to correspond with the mammography finding at 7 o'jose ck (lower inner quadrant, oval circumscribed focal asymmetry). This is incidental. A follow-up mammogram in 6 months is recommended to demonstrate stability. This exam was interpreted at Station ID: [id number]. Electronically Signed By: Wally Smith M.D. lc/:08/01/2022 11:34:19 Ultrasound BI-RADS: 3 Probably benign BI-RADS CATEGORY: (3) - 3 Mammogram [id number] 6 month follow-up LATERALITY: (B)
== END 2022-08-01 08:50 | disposition home or self-care (01) ==
LOC: DI 08:49
PROVIDERS: ATTEND Obstetrics & Gynecology
DX: N60.02 Solitary cyst of left breast (principal); R92.8 Other abnormal and inconclusive findings on diagnostic imaging of breast; Z09 Encounter for follow-up examination after completed treatment for conditions other than malignant neoplasm; Z87.42 Personal history of other diseases of the female genital tract

== ENCOUNTER 2023-02-14 17:50 | Emergency (ER) | payer BC ==
[2023-02-14 18:57] LABS: BASOPHILS % (AUTO) 0.4 %; EOSINOPHILS # (AUTO) 0.1 10^3/uL (0.0-0.7); EOSINOPHILS % (AUTO) 1.2 %; HCT - HEMATOCRIT 37.6 % (37.0-47.0); HGB - HEMOGLOBIN 12.6 g/dL (12.0-16.0); LYMPHOCYTES % (AUTO) 27.6 %; MEAN CORPUSCULAR HEMOGLOBIN 30.8 pg (27.0-31.0); MEAN CORPUSCULAR HGB CONC 33.5 g/dL (32.0-36.0); MEAN CORPUSCULAR VOLUME 91.9 fL (81.0-99.0); MEAN PLATELET VOLUME 10.2 fL (7.9-10.8); MONOCYTES # (AUTO) 0.6 10^3/uL (0.0-1.0); MONOCYTES % (AUTO) 5.7 %; NEUTROPHILS % (AUTO) 64.8 %; PLT - PLATELET COUNT 324 10^3/uL (130-450); RED BLOOD COUNT 4.09 10^6/uL (4.20-5.40); RED CELL DISTRIBUTION WIDTH 12.4 % (12.0-15.0); WHITE BLOOD COUNT 10.9 x10^3/uL (4.8-10.8)
[2023-02-14 19:13] LABS: ALBUMIN 4.7 g/dL (3.2-5.5); ALBUMIN/GLOBULIN RATIO 1.6 (1.0-2.2); BILIRUBIN,TOTAL 0.3 mg/dL (0.2-1.0); CALCIUM 9.7 mg/dL (8.5-10.3); CREATININE 0.8 mg/dL (0.6-1.3); POTASSIUM 4.1 mmol/L (3.5-4.5); TOTAL PROTEIN 7.6 g/dL (6.4-8.9)
--- NOTE | 2023-02-14 20:36 | ED Physician Documentation ---
PD HPI ABD PAIN - Stated complaint Stated Complaint: GI - Chief complaint Chief Complaint: Abd Pain - Additional information Additional information: HPI from patient Patient complains of episodic constipation alternating with diarrhea, diffuse crampy abdominal pain, early satiety. The pain is diffuse and without apparent exacerbating or ameliorating factors. She denies fever. Has had nausea but no vomiting. The patient says she has had the symptoms for several weeks. She has tried MiraLAX as well as dietary changes without any improvement. Patient denies chance of . She called her primary care provider but soonest available appointment is not until next month. She denies having the symptoms prior to onset a few weeks ago. Review of Systems Constitutional: reports: Sweats. denies: Fever, Chills GI: reports: Abdominal Pain, Abdominal Swelling, Nausea, Constipation, Diarrhea. denies: Vomiting, Hematemesis, Bloody / black stool : denies: Dysuria, Frequency, Now EGA PD PAST MEDICAL HISTORY - Past Medical History Cardiovascular: None Respiratory: Other Endocrine/Autoimmune: None GI: None : None HEENT: None Psych: Depression, Anxiety Musculoskeletal: None Derm: Eczema - Past Surgical History Past Surgical History: Yes Ortho: Other /[employer]: section - Present Medications Home Medications: Ambulatory Orders Medication Instructions Recorded Confirmed Cyclobenzaprine HCl 5 mg PO DAILY 04/01/19 10/14/19 - Allergies Allergies/Adverse Reactions: Allergies Allergy/AdvReac Type Severity Reaction Status Date / Time No Known Drug Allergies Allergy Verified 10/14/19 11:39 - Social History Does the pt smoke?: No Smoking Status: Never smoker Does the pt drink ETOH?: No Does the pt have substance abuse?: No - Immunizations Immunizations are current?: Yes - POLST Patient has POLST: No PD ED PE NORMAL - Vitals Vital signs reviewed: Yes - General General: Alert and oriented X 3, No acute distress, Well developed/nourished - Neck Neck: Supple, no meningeal sign - Cardiac Cardiac: RRR, No murmur - Respiratory Respiratory: No respiratory distress, Clear bilaterally - Abdomen Abdomen: Soft, Non tender, Non distended, Other (diminished bowel sounds) - Back Back: No CVA TTP - Derm Derm: Normal color, Warm and dry Results - Vitals Vitals: Vital Signs - 24 hr 02/14/23 02/14/23 20:24 23:43 Heart Rate 80 81 Respiratory 18 18 Rate Blood Pressure 127/71 109/67 O2 Saturation 100 98 Oxygen O2 Source Room air - Labs Labs: Laboratory Tests 02/14/23 02/14/23 02/14/23 18:50 18:50 21:20 WBC 10.9 H RBC 4.09 L Hgb 12.6 Hct 37.6 MCV 91.9 MCH 30.8 MCHC 33.5 RDW 12.4 Plt Count 324 MPV 10.2 Neut # (Auto) 7.0 H Lymph # (Auto) 3.0 [place] # (Auto) 0.6 Eos # (Auto) 0.1 Baso # (Auto) 0.0 Absolute Nucleated RBC 0.00 Nucleated RBC % 0.0 Sodium 139 Potassium 4.1 Chloride 106 Carbon Dioxide 28 Anion Gap 5.0 L BUN 14 Creatinine 0.8 Estimated GFR (MDRD) 81 L Glucose 98 Calcium 9.7 Total Bilirubin 0.3 AST 11 ALT 8 L Alkaline Phosphatase 52 Total Protein 7.6 Albumin 4.7 Globulin 2.9 Albumin/Globulin Ratio 1.6 Lipase 27 Urine Color YELLOW Urine Clarity CLEAR Urine pH 6.0 Ur Specific [place] 1.010 Urine Protein NEGATIVE Urine Glucose (UA) NEGATIVE Urine Ketones NEGATIVE Urine Occult Blood NEGATIVE Urine Nitrite NEGATIVE Urine Bilirubin NEGATIVE Urine Urobilinogen 0.2 (NORMAL) Ur Leukocyte Esterase NEGATIVE Ur Microscopic Review NOT INDICATED Urine Culture Comments NOT INDICATED - Rads (name of study) CT A/P with IV and PO contrast Relevant Findings:: Prelim report reviewed, See rad report PD Medical Decision Making - ED course Complexity details: reviewed results, re-evaluated patient, considered differential, d/w patient ED course: No concerning nor diagnostic findings on blood tests (minimal leukocytosis noted , WBC 10.9). Normal ER abdominal panel including LFTs and lipase. CT A/P unremarkable except for moderate amount of colonic stool burden, possibly s/o constipation. Patient's last BM was yesterday. Results d/w patient. Constipation would only account for some of her symptoms (she also describes episodes of diarrhea, and early satiety would not be typical symptom of c onstipation). Etiology of symptoms is not apparent at this time. I advised her to continue to pursue outpatient follow-up. Differential diagnosis includes, but not limited to, IBS, malabsorbtion. Doubt IBD (no evidence of inflammation on CT A/P), doubt infectious etiology (no recent antibiotics, diarrhea alternates with constipation). Return precautions discussed with patient prior to d/c. Departure - Departure Disposition: 01 Home, Self Care Clinical Impression: Abdominal pain Condition: Good Instructions: ED Abdominal Pain Female Non-Specific Abdominal Pain Follow-Up: Vickie Latif ARNP [Primary Care Provider] - Comments: There were no concerning nor diagnostic findings on tonight's test. As we discussed, there was a moderate amount of stool in your colon on the CT scan which is suggestive of constipation. However, constipation alone would not explain all of the signs and symptoms that you were describing. I recommend that you contact your primary care provider to see if they can reevaluate you sooner than the appointment that you have the next month. You might also inquire as to a referral to a tax collector. Forms: PCP List Discharge Date/Time: 02/14/23 23:42
[2023-02-14] MEDS ORDERED: DIATR MEGLU/DIATRIZOATE SODIUM 120 ML BOTTLE ONE (21:05)
[2023-02-14 21:34] LABS: BILIRUBIN,URINE NEGATIVE (NEGATIVE); GLUCOSE, URINE (UA) NEGATIVE (NEGATIVE); KETONES,URINE (UA) NEGATIVE (NEGATIVE); LEUKOCYTE ESTERASE, URINE NEGATIVE (NEGATIVE); NITRITE,URINE NEGATIVE (NEGATIVE); OCCULT BLOOD,URINE NEGATIVE (NEGATIVE); PROTEIN,URINE NEGATIVE (NEGATIVE); UROBILINOGEN,URINE 0.2 (NORMAL) E.U./dL (NORMAL)
[2023-02-14 21:35] LABS: CLARITY,URINE CLEAR (CLEAR)
--- NOTE | 2023-02-14 22:55 | CT Report ---
PROCEDURE: ABDOMEN/PELVIS W INDICATIONS: abd. pain, tenderness CONTRAST: 100mL Omni 300 TECHNIQUE: After the administration of IV and oral contrast, 5 mm thick sections acquired from the diaphragms to the symphysis. 5 mm thick coronal and sagittal reformats were acquired. For radiation dose reducti on, the following was used: automated exposure control, adjustment of mA and/or kV according to mulugeta ent size. COMPARISON: 11/02/2018 FINDINGS: Image quality: Excellent. Lung bases and heart: Unremarkable. Liver: No solid mass. Hepatomegaly is seen. Gallbladder and biliary tree: Gallbladder is within normal limits. No biliary ductal dilatation. Spleen: No splenomegaly. Pancreas: No pancreatic ductal dilation. Adrenals: No adrenal nodule. Kidneys and ureters: No hydronephrosis. No renal cystic lesion which requires follow up. No solid mas s. Bowel and peritoneum: There is a small hiatal hernia. No bowel obstruction or abnormal bowel wall thi ckening. No mesenteric fat stranding. Appendix is visualized and is within normal limits. No abscess collection. No free fluid of free air. Moderate fecal stasis in the colon is seen. Lymph nodes: No central or retroperitoneal adenopathy. Vessels: No infrarenal aortic aneurysm. PELVIS Reproductive organs: Unremarkable. Bladder: No abnormal wall thickening, accounting for underdistension. Pelvic lymph nodes: No pelvic adenopathy by size criteria. Bones: No aggressive osseous abnormality. Other: No significant ventral or inguinal hernia. IMPRESSION: 1. No bowel obstruction or abnormal bowel wall thickening. Normal appendix. No abscess collection. No free fluid of free air. Mild to moderate constipation. 2. No renal stones or hydronephrosis. 3. Hepatomegaly, no discrete hepatic lesion. Reviewed by: Tip Galdamez MD on 02/14/2023 10:54 PM PDT Approved by: Tip Galdamez MD on 02/14/2023 10:54 PM PDT Station ID: [id number]
[2023-02-14 23:47] VITALS: BP 109/67; O2SAT 98
[2023-02-15] MEDS ORDERED: iohexoL-300 100 ML VIAL IVP ONE (00:57)
[2023-02-15] MEDS ORDERED: DIATRIZOATE MEGLU/DIATRIZO SOD 30 ML BOTTLE PO ONE (00:58)
== END 2023-02-14 23:42 | disposition home or self-care (01) ==
LOC: ED 17:50
DX: R10.84 Generalized abdominal pain (principal); K59.00 Constipation, unspecified; R19.7 Diarrhea, unspecified; R68.81 Early satiety
CPT/HCPCS: 36415; 74177; 80053; 81003; 83690; 85025; 99283; 99284; Q9963; 81001; 87086

== ENCOUNTER 2023-03-20 10:13 | Outpatient (CLI) | payer BC ==
--- NOTE | 2023-03-21 16:14 | Mammography Report ---
BILATERAL DIGITAL DIAGNOSTIC MAMMOGRAM 3D/2D: 03/20/2023 CLINICAL: Patient returns for a 6 month follow up of bilateral breasts. Comparison is made to exam dated: 08/01/2022 mammogram - [facility]. Both breasts are heterogeneously dense, which may obscure small masses (category c / 51-75% glandular tissue). Right breast: There is an oval focal asymmetry in the right breast central to the nipple posterior depth. This is s table compared to baseline mammogram on 08/01/2022. No ultrasound correlate was identified. Left breast: There is an oval focal asymmetry in the left breast at 7 o'clock anterior depth. This is stable reagan red to baseline mammogram on 08/01/2022. No ultrasound correlate was identified. No other significant masses or calcifications are seen in either breast. IMPRESSION: PROBABLY BENIGN 1) Right breast oval focal asymmetry central to the nipple posterior depth, stable since baseline jesse mogram 08/01/2022. No ultrasound correlate identified. Finding is probably benign. Recommend follow up right breast mammogram in 6 months to demonstrate 1 year stability. 2) Left breast oval focal asymmetry at 7 o'clock anterior depth, stable since baseline mammogram 08/01. No ultrasound correlate identified. Finding is probably benign. Recommend follow up left breas t mammogram in 6 months to demonstrate 1 year stability. Findings and recommendations were conveyed to the patient during today's evaluation. Based on the Tyrer Cuzick model (a risk assessment model) the patients lifetime risk is 10.9% and he r 10 year risk is 0.9%. According to the ACR, ACS, and NCCN guidelines, an annual breast MRI exam dottie ng with mammogram is recommended if the patients lifetime risk is 20% or greater. This exam was interpreted at Station ID: [id number]. NOTE: For mammograms, a report in lay terms will be sent to the patient. Approximately 15% of breast malignancies will not be visualized mammographically. In the management of a palpable breast mass, a negative mammogram must not discourage biopsy of a clinically suspicious lesion. Electronically Signed By: Kelsy Johnston M.D., PH.D eb/:03/20/2023 12:22:37 ACR BI-RADS Category 3: Probably benign 3343F PARENCHYMAL PATTERN: (D) - The breast(s) demonstrate(s) heterogeneously dense fibroglandular parenchy ma. BI-RADS CATEGORY: (3) - 3 Mammogram [id number] 6 month follow-up LATERALITY: (B)
== END 2023-03-20 10:14 | disposition home or self-care (01) ==
LOC: DI 10:13
PROVIDERS: ATTEND Registered Nurse
DX: R92.8 Other abnormal and inconclusive findings on diagnostic imaging of breast (principal); R92.333 Mammographic heterogeneous density, bilateral breasts

== ENCOUNTER 2023-10-10 16:37 | Outpatient (CLI) | payer BC ==
--- NOTE | 2023-10-11 12:14 | XRAY Report ---
PROCEDURE: Abdomen 1 V INDICATIONS: CONSTIPATION TECHNIQUE: One view of the abdomen acquired. COMPARISON: 02/14/2023 FINDINGS: Surgical changes and devices: None. Bowel: Bowel gas pattern is normal. Mild colonic stool load. Soft tissues: No suspicious abdominal calcifications. Visualized solid organ contours appear normal in size. Bones: No suspicious bony lesions. IMPRESSION: No acute abdominal pathology. Mild colonic stool load. Reviewed by: Bernard Celaya MD on 10/11/2023 12:13 PM PDT Approved by: Bernard Celaya MD on 10/11/2023 12:13 PM PDT Station ID: [id number]
== END 2023-10-10 16:38 | disposition home or self-care (01) ==
LOC: DI.S 16:37
PROVIDERS: ATTEND Internal Medicine Gastroenterology
DX: K59.00 Constipation, unspecified (principal); R10.84 Generalized abdominal pain

== ENCOUNTER 2023-10-12 08:00 | Outpatient (CLI) | payer BC | END 2023-10-12 08:01 | disposition home or self-care (01) | LOC: LAB.R 08:00 | PROVIDERS: ATTEND Internal Medicine Gastroenterology | DX: K59.00 Constipation, unspecified (principal); R10.84 Generalized abdominal pain | CPT/HCPCS: 83993 ==

== ENCOUNTER 2023-10-16 10:12 | Outpatient (CLI) | payer BC ==
[2023-10-16 10:30] LABS: BASOPHILS % (AUTO) 0.6 %; EOSINOPHILS # (AUTO) 0.1 10^3/uL (0.0-0.7); EOSINOPHILS % (AUTO) 1.7 %; HCT - HEMATOCRIT 37.2 % (37.0-47.0); HGB - HEMOGLOBIN 12.5 g/dL (12.0-16.0); LYMPHOCYTES # (AUTO) 1.8 10^3/uL (1.5-3.5); LYMPHOCYTES % (AUTO) 26.1 %; MEAN CORPUSCULAR HEMOGLOBIN 30.8 pg (27.0-31.0); MEAN CORPUSCULAR HGB CONC 33.6 g/dL (32.0-36.0); MEAN CORPUSCULAR VOLUME 91.6 fL (81.0-99.0); MONOCYTES # (AUTO) 0.4 10^3/uL (0.0-1.0); MONOCYTES % (AUTO) 5.7 %; NEUTROPHILS # (AUTO) 4.6 10^3/uL (1.5-6.6); NEUTROPHILS % (AUTO) 65.5 %; PLT - PLATELET COUNT 290 10^3/uL (130-450); RED BLOOD COUNT 4.06 10^6/uL (4.20-5.40); RED CELL DISTRIBUTION WIDTH 13.2 % (12.0-15.0)
[2023-10-16 10:57] LABS: ALBUMIN 4.4 g/dL (3.2-5.5); ALBUMIN/GLOBULIN RATIO 1.6 (1.0-2.2); BILIRUBIN,TOTAL 0.3 mg/dL (0.2-1.0); CALCIUM 9.6 mg/dL (8.5-10.3); CREATININE 0.8 mg/dL (0.6-1.3); POTASSIUM 4.2 mmol/L (3.5-4.5); TOTAL PROTEIN 7.2 g/dL (6.4-8.9)
[2023-10-16 11:01] LABS: THYROID STIMULATING HORMONE 1.62 uIU/mL (0.34-5.60)
== END 2023-10-16 10:13 | disposition home or self-care (01) ==
LOC: LAB 10:12
PROVIDERS: ATTEND Internal Medicine Gastroenterology
DX: K59.00 Constipation, unspecified (principal); R10.84 Generalized abdominal pain
CPT/HCPCS: 36415; 80053; 82784; 84443; 85025; 86231; 86364

== ENCOUNTER 2023-10-16 10:28 | Outpatient (CLI) | payer BC ==
--- NOTE | 2023-10-17 10:53 | Ultrasound Report ---
LIMITED ULTRASOUND OF LEFT BREAST: 10/16/2023 CLINICAL: Patient returns today to evaluate a focal asymmetry in the left breast. Comparison is made to exams dated: 10/16/2023 mammogram, 03/20/2023 mammogram, 08/01/2022 ultrasound, and 08/01/2022 mammogram - [facility]. Color flow ultrasound of the left breast 7 o'clock and 10 o'clock regions was performed on the areas of interest. Carroll scale images of the real-time examination were reviewed. There is an irregular mass in the left breast at 10 o'clock middle depth. This irregular mass is hyp oechoic. This correlates with mammography findings. IMPRESSION: PROBABLY BENIGN The irregular mass in the left breast at 10 o'clock likely represents a lymph node and is probably be nign. There is no abnormality seen in the left breast to correspond with the mammography finding at 7-9 o'c lock, however, a follow-up mammogram and an ultrasound in 6 months is recommended to demonstrate stab ility. This exam was interpreted at Station ID: [id number]. Electronically Signed By: Jacqueline junior/:10/16/2023 12:16:47 Ultrasound BI-RADS: 3 Probably benign BI-RADS CATEGORY: (3) - 3 Mammo and [place] [id number] 6 month follow-up LATERALITY: (B)
--- NOTE | 2023-10-17 10:53 | Ultrasound Report ---
LIMITED ULTRASOUND OF RIGHT BREAST: 10/16/2023 CLINICAL: Patient returns today to evaluate a focal asymmetry in the right breast. Comparison is made to exams dated: 10/16/2023 mammogram, 03/20/2023 mammogram, 08/01/2022 ultrasound, and 08/01/2022 mammogram - [facility]. Color flow ultrasound of the right breast 8 o'clock region was performed on the areas of interest. G ray scale images of the real-time examination were reviewed. There is an irregular cyst in the right breast at 8 o'clock middle depth. This irregular cyst is hyp oechoic with a well-defined boundary, internal echoes, and posterior acoustic enhancement. This like ly correlates with mammography findings. IMPRESSION: PROBABLY BENIGN The irregular cyst in the right breast likely represents a complicated cyst and is probably benign. Follow-up mammogram and ultrasound in 6 months is recommended. This exam was interpreted at Station ID: [id number]. Electronically Signed By: Jacqueline junior/:10/16/2023 12:19:17 Ultrasound BI-RADS: 3 Probably benign BI-RADS CATEGORY: (3) - 3 Mammo and US [id number] 6 month follow-up LATERALITY: (B)
--- NOTE | 2023-10-17 10:53 | Mammography Report ---
BILATERAL DIGITAL DIAGNOSTIC MAMMOGRAM 3D/2D: 10/16/2023 CLINICAL: Patient returns for a 6 month follow up of bilateral breasts. Comparison is made to exams dated: 03/20/2023 mammogram and 08/01/2022 mammogram - [facility]. There are scattered areas of fibroglandular density in both breasts (category b / 25%-50% glandular t issue). There is a stable oval focal asymmetry in the right breast central to the nipple posterior depth. There is a stable oval focal asymmetry in the left breast at 7 o'clock anterior depth. Additionally, there is a focal asymmetry in the left breast at 12 o'clock middle depth. No other significant masses or calcifications are seen in either breast. IMPRESSION: INCOMPLETE: NEEDS ADDITIONAL IMAGING EVALUATION The oval focal asymmetry in the right breast central to the nipple posterior depth is indeterminate. The oval focal asymmetry in the left breast at 7 o'clock anterior depth is indeterminate. The focal asymmetry in the left breast at 12 o'clock middle depth needs additional evaluation. A targeted ultrasound of the bilateral breasts is recommended and will be performed immediately follo wing this exam. Based on the Tyrer Cuzick model (a risk assessment model) the patient's lifetime risk is 10.9% and he r 10 year risk is 0.9%. According to the ACR, ACS, and NCCN guidelines, an annual breast MRI exam dottie ng with mammogram is recommended if the patient's lifetime risk is 20% or greater. This exam was interpreted at Station ID: [id number]. NOTE: For mammograms, a report in lay terms will be sent to the patient. Approximately 15% of breast malignancies will not be visualized mammographically. In the management of a palpable breast mass, a negative mammogram must not discourage biopsy of a clinically suspicious lesion. Electronically Signed By: Jacqueline Saavedra M.D. lk/:10/16/2023 11:51:03 ACR BI-RADS Category 0: Incomplete 3340F PARENCHYMAL PATTERN: (A) - The breast(s) demonstrate(s) scattered fibroglandular densities. BI-RADS CATEGORY: (0) - 0 Ultrasound [id number] Immediate follow-up LATERALITY: (B)
== END 2023-10-16 10:29 | disposition home or self-care (01) ==
LOC: DI 10:28
PROVIDERS: ATTEND Registered Nurse
DX: R92.8 Other abnormal and inconclusive findings on diagnostic imaging of breast (principal); N60.01 Solitary cyst of right breast; R92.323 Mammographic fibroglandular density, bilateral breasts; K59.00 Constipation, unspecified; R10.84 Generalized abdominal pain
CPT/HCPCS: 36415; 80053; 82784; 84443; 85025; 86231; 86364